=== PATIENT | female | born 1970 | race Caucasian/White ===

== ENCOUNTER 2020-04-07 08:54 | Emergency (ER) | payer BC, OTHER ==
[2020-04-07 13:11] LABS: SARS-CoV-2 MS2 Positive; SARS-CoV-2 N Gene Positive; SARS-CoV-2 S Gene Positive; SARS-CoV-2 by NAA DETECTED (NotDetected); SARS-CoV-2 orf1ab Positive
== END 2020-04-07 10:00 | disposition home or self-care (01) ==
LOC: ERS 08:54
DX: U07.1 COVID-19 (principal)
CPT/HCPCS: 87635; 87804; 99283; U0003